=== PATIENT | female | born 1985 | race Caucasian/White ===

== ENCOUNTER → 2016-05-31 | Day surgery (SDC) | payer OTHER ==
--- NOTE | 2016-05-30 17:01 | MH ---
cc: LUIS ANGELO DMD DATE OF ADMISSION 05/31/2016 DATE OF 1985 HISTORY OF THE PRESENT ILLNESS Ms. Brown presented to my office on April 29, 2016 for evaluation of her lump on her chin / neck. She stated that the lump has been there for approximately one year. She was living in [place]. The swelling comes and goes and extends all way up to the right ear on the side. We had also done in the office a previous needle aspiration that came back as a thickened, clear serous yellowish fluid. Consistent with the saliva. The patient indicates the swelling comes and goes. 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 She was supposed to have surgery previously but she never had it done. Now the plan for her is to proceed with the removal of this plunging ranula in the main OR. Vital signs blood pressure is 124/90, oxygen saturation 97%, pulse is at 67. PAST MEDICAL HISTORY 1. History of lipoma. 2. Bruising easily. 3. Clicking of jaw. 4. Clenching of teeth. MEDICATIONS Denied. PAST SURGICAL HISTORY 1. Removal of lipoma from back in 2010. 2. From foot and neck in 1997 and 1999. ALLERGIES TO PENICILLIN AND AMOXICILLIN. FAMILY HISTORY Mother has history of hypothyroidism, hypertension and breast cancer. SOCIAL HISTORY Denies alcohol, tobacco or illicit drug use REVIEW OF SYSTEMS NEUROLOGICAL: Denies any history of seizures or headaches. CARDIOVASCULAR:Denies any pericardial pain, any hypo or hypertension. Denies any cardial pain. Denies any chest pain. RESPIRATORY: Denies any difficulty breathing,shortness of breath, denies any asthma, any TB. MUSCULOSKELETAL: Denies any discomfort to moving extremities or lower extremities. GASTROINTESTINAL: Denies any history of irritable bowel syndrome, peptic ulcer disease, any abdominal discomfort. PHYSICAL EXAMINATION HEENT: Head is normocephalic. EYES: Pupils equal, round, react to light and accommodation. Extraocular movements are intact. NOSE: Nasal passages are patent. MOUTH: There is no elevation of floor of the mouth or the tongue. There is salivation, there is salivary flow that is noted upon palpation intraorally. Tissues are pink and well-perfused. NECK: There is a soft tissue edema that is towards the midportion going slightly to the right side of the neck. It is nontender to palpation. It is raised and it is soft. There is no erythema that is noted. There is no tenderness that is noted. Trachea midline. The expansion appears to be approximately 4 cm. CARDIOVASCULAR: Regular rate and rhythm. LUNGS: Clear to auscultation bilaterally. GASTROINTESTINAL: Positive bowel sounds. Nontender, nondistended, soft. GENITOURINARY: Deferred. EXTREMITIES: Positive range of movement. IMAGING Radiographic data, CT scan of the soft tissues neck shows a fluid filled area towards the floor of the mouth and towards the right side of the neck. It is well-circumscribed. IMPRESSION AND PLAN Ms. Brown has a history of a longstanding history of approximately one year of swelling on her chin which comes and goes, expands sometimes to the right side and causing discomfort radiating to her ear. Based on clinical data, radiographic data, and the needle aspiration, appears to be plunging ranula. Plan is to make an incision through the neck and remove the ranula and send it for biopsy. Benefits, risks, indications of the procedure, the procedure in detail and the options of no treatment were all discussed with this patient. Risks not limited to any postop pain, infection, bleeding, damage to the soft tissue, hard tissue, anesthesia complications, scar formation, recurrence of this lesion, further surgeries as required. All questions and concerns were addressed. Luis Angelo DMD RRT/MAISHA /3:32 PM /4:36 PM JAMEEL
[~2016-05-31] VITALS: Ht 162.6 cm; Wt 76.0 kg
[~2016-05-31] MED LIST: ACETAMINOPHEN 1000 MG/100 ML VIAL IV ONE; CHLORHEXIDINE GLUCONATE 0.12% 30 ML CUP ONE; CLINDAMYCIN 600 MG/NS 100 ML IV SCH; DEXAMETHASONE 4 MG TAB ONE; DEXAMETHASONE SOD PHOS 4 MG/ML VIAL ONE; DO NOT ADM ANY ANTICOAGULANT DRUGS XX PRN; FAMOTIDINE 20 MG/2 ML VIAL ONE; GELFOAM SIZE 100 ONE; INSULIN HUMAN REGULAR 1,000 UNITS/10 ML VIAL SQ PRN; KETOROLAC TROMETHAMINE 30 MG/ML (IVP) VIAL IV PUSH ONE; LACTATED RINGER'S 1000 ML INJ 1,000 ML IV ONE; LACTATED RINGER'S 1000 ML IV SCH; LIDOCAINE 1%/EPINEPHrine 1:100,000 SOLN 20 ML VIAL ONE; LIDOCAINE 2%/EPINEPHrine 1:100,000 30ML MDV ONE; METOPROLOL TARTRATE 25 MG TAB PO PRN; MICROFIBRILLAR COLLAGEN HEMOSTAT 70 X 35 MM BANDAGE ONE; MIDAZOLAM HCL 2 MG/2 ML VIAL ONE; ONDANSETRON HCL 4 MG/2 ML VIAL IV PUSH ONE; PROPOFOL 200 MG/20 ML AMP IV ONE; SODIUM CHLORID 0.9% 500 ML IV SCH; SODIUM CHLORIDE 0.9% INJ 100 ML ONE; fentaNYL CITRATE 250 MCG/5 ML AMP ONE; methylPREDNISolone SOD SUCC 125 MG/2 ML VIAL IV ONE; methylPREDNISolone SOD SUCC 125 MG/2 ML VIAL ONE
[2016-05-31 13:21] VITALS: BP 151/98; PULSE 86; RESP 16; TEMP 98.9; O2SAT 99
[2016-05-31 13:53] LABS: AUTOMATED NEUTROPHIL # 3.3 TH/MM3 (1.8-7.7); BASOPHIL # 0.1 TH/MM3 (0-0.2); BASOPHIL % 1.2 % (0.0-2.0); EOSINOPHIL # 0.2 TH/MM3 (0-0.4); EOSINOPHIL % 3.1 % (0.0-4.0); HEMATOCRIT 42.5 % (35.0-46.0); HEMO FLAGS DIFF FINAL; LYMPHOCYTE # 1.8 TH/MM3 (1.0-4.8); MEAN CELL VOLUME 85.2 FL (80.0-100.0); MEAN CORPUSCULAR HEMOGLOBIN 28.3 PG (27.0-34.0); MEAN CORPUSCULAR HGB CONC 33.2 % (32.0-36.0); MONO % 8.9 % (0.0-8.0); NEUT % 55.8 % (16.0-70.0); PLATELET COUNT 310 TH/MM3 (150-450); RED BLOOD COUNT 4.99 MIL/MM3 (4.00-5.30); RED CELL DISTRIBUTION WIDTH 12.9 % (11.6-17.2)
[2016-05-31 18:07] VITALS: BP 123/91; PULSE 86; RESP 16; TEMP 86; O2SAT 96
--- NOTE | 2016-06-03 07:43 | MP ---
cc: LUIS ANGELO DMD [facility], DATE OF SURGERY 05/31/2016 PREOPERATIVE DIAGNOSIS Right neck plunging ranula. POSTOPERATIVE DIAGNOSIS Right neck plunging ranula. PROCEDURE Excision of ranula right neck. SURGEON Dr. Angelo TELEVISION PRODUCTION TECHNICIAN Dr. Robles ANESTHESIA General, also 2% lidocaine with 1:100,000 epinephrine approximately 4 cc SPECIMENS The tissue from the neck. ESTIMATED BLOOD LOSS Minimal DISPOSITION The patient tolerated the procedure well, extubated and taken to the PACU. INDICATIONS FOR PROCEDURE This is a 31-year-old female with the approximately one year standing swelling on the right side of the neck near the midline going up to the right side of the ear. Aspiration in the clinic with the needle showed a yellowish clear sticky secretion consistent with saliva. CT scan also showed a soft tissue density consistent with what appears to be a plunging ranula. The patient is going to require removal of this plunging ranula in order to restore proper form and function. The benefits, risks, indication of the procedure, procedure in detail and the options of no treatment were discussed with this patient. The risks are not limited to any postop pain, infection, bleeding, damage to the adjacent soft tissue, hard tissue, anesthesia complications, numbness, nerve involvement, recurrence of this lesion/ranula, further surgeries as required, cosmetic defect which may require further correction. All questions and concerns were addressed. Consent is signed in the chart. PROCEDURE IN DETAIL The patient was met perioperatively. All questions and concerns were addressed. Past medical history was reviewed. No changes noted. The right side of the neck was marked. Clindamycin 600 mg was started perioperatively. The patient was taken to operating room number nine, placed on the table in the supine position. She was intubated orally. Eyes were taped shut. All pressure points were padded. At this time, a time-out was taken to identify the patient, the site, the procedure, surgery and all were in agreement. The patient was prepped at the surgical site with Betadine solution. I went to the sink to scrub and came back to wear the sterile attire. The patient draped in a normal sterile fashion. A marking pen used to make an outline from the angle of the mandible down to the inferior border of the mandible. Once that was done two fingerbreadths down, another two fingerbreadths down identified, 2% lidocaine with 1:100,000 epinephrine approximately 4 cc was injected over the area which we planned to make the incision. A marking pen was now used to make that line of incision. A 15 blade was used to make the incision through the skin. Bovie was used to cut down and then the platysma and all the all the fat layer. Once this was done, a dissecting scissors was used to gently, as I encountered the ranula, just to go all around it and slowly start lifting it off from the neck in a step and coming up. I started from the midline going right side to the posterior. I also palpated from inside the mouth with the lingual region the attachment to the lingual gland. When all the way down posteriorly, I excised this lesion/tissue/ranula in its entirety. Any bleeders were cauterized. Avitene was placed. The site was cauterized. The site was irrigated with Peridex saline and then finally Avitene was placed into the site. A smaller stab incision was made on the right side of the neck and a 1/4 inch [place] drain was placed into the operative site into the neck. Finally, 4-0 Vicryl was used to close up layers and then finally the skin was closed with 5-0 Prolene suture. The 1/4 inch Erica drain was attached with a 2-0 silk suture. Mastisol was placed around the wound surgical site, Steri-Strips were placed 1/2 inch. Finally, 4x4 gauze, Jonathon was used to wrap up the site. The patient tolerated the procedure well. No complications noted. All sponge and needle counts were all accounted for. ADDENDUM This specimen was now taken to pathology. Luis Angelo DMD RRT/PANDA /4:30 PM /7:27 AM JAMEEL
== END | disposition home or self-care (01) ==
LOC: HSDC 12:17
PROVIDERS: ATTEND Dentist Oral and Maxillofacial Surgery
DX: K11.6 Mucocele of salivary gland (principal); D76.3 Other histiocytosis syndromes; Z80.3 Family history of malignant neoplasm of breast; Z82.49 Family history of ischemic heart disease and other diseases of the circulatory system
CPT/HCPCS: 85025; 88305; J0131; J1100; J1885; J2250; J2405; J2930; J3010; J7120; J8540

== ENCOUNTER 2017-02-23 11:19 | Inpatient (IN) | payer OTHER ==
[~2017-02-23] VITALS: Ht 162.6 cm; Wt 85.3 kg
[2017-02-23] VITALS (93 sets, daily range): BP systolic 118–151; BP diastolic 65–120; PULSE 77–132; RESP 18–20; TEMP 97.4–98.2
[2017-02-23] MEDS ORDERED: PRENTAB85 PO (12:06)
[2017-02-23] MEDS ORDERED: LABE100T2 PO (12:06)
[2017-02-23] MEDS ORDERED: LACTATED RINGER'S 1000 ML INJ 1,000 ML IV PRN (12:49)
[2017-02-23] MEDS ORDERED: LACTATED RINGER'S 1000 ML INJ 1,000 ML IV SCH (12:49)
[2017-02-23] MEDS ORDERED: LIDOCAINE HCL 1% 50 ML VIAL INFIL PRN (13:00)
[2017-02-23] MEDS ORDERED: OXYTOCIN 30 UNITS-500ML PREMIX 500 ML IV ONE (13:00)
[2017-02-23] MEDS ORDERED: MINERAL OIL 10 ML VIAL TOPICAL PRN (13:00)
[2017-02-23] MEDS ORDERED: OXYTOCIN 30 UNITS-500ML PREMIX 500 ML IV SCH ×2 (13:00→20:00)
[2017-02-23] MEDS ORDERED: CITRIC ACID-SODIUM CITRATE LIQ 30 ML UDC PO SCH (13:00)
[2017-02-23] MEDS ORDERED: SODIUM CHLORID 0.9% 500 ML INJ 500 ML IV PRN (13:00)
[2017-02-23] MEDS ORDERED: LIDOCAINE HCL 1% 50 ML VIAL I-DERMAL PRN (13:00)
--- NOTE | 2017-02-23 13:05 | HHI.HP ---
HPI Chief Complaint IUGR with hypertension on aldomet 38 weeks Date Seen: Feb 23, 2017 Time Seen: 12:45 Travel History International Travel<30 Days: No Contact w/Intl Traveler<30Days: No Known Affected Area: No History of Present Illness HPI 31 yo with IUGR for induction at 38 weeks Weeks Gestation: 38 Para: 3 : 4 History Past Medical History Medical History: Denies Significant Hx Past Surgical History Surgical History: No Previous Surgery Family History Family History: Negative Social History Alcohol Use: No Tobacco Use: No Substance Abuse: No Allergies-Medications (Allergen,Severity, Reaction): Coded Allergies: penicillin G (Unverified Allergy, Severe, Hives, 12/28/16) amoxicillin (Unverified Allergy, Unknown, 12/28/16) Home Meds Reported Medications Vit W/ Ferrous Fumara (Pnv Plus Multivi 27-1 mg) 27 Mg Iron-1 Mg Tab, 1 TAB PO DAILY 02/23/17 Labetalol (Labetalol) 100 Mg Tab, 100 MG PO BID for Blood Pressure Management, TAB 0 Refills 02/23/17 Review of Systems Except as stated in HPI: all other systems reviewed are Neg Physical Exam Narrative GENERAL: Well-nourished, well-developed patient. SKIN: Warm and dry. HEAD: Normocephalic and atraumatic. EYES: No scleral icterus. No injection or drainage. ENT: No nasal drainage noted. Mucous membranes pink. Airway patent. NECK: Supple, trachea midline. No JVD. CARDIOVASCULAR: Regular rate and rhythm without murmurs, gallops, or rubs. RESPIRATORY: Breath sounds equal bilaterally. No accessory muscle use. BREASTS: Bilateral exam showed no masses , no retractions, no nipple discharge. ABDOMEN/GI: Abdomen soft, non-tender, bowel sounds present, no rebound, no guarding Gravid to [-] weeks size Fundal Height: [-] GENITOURINARY: External Genitalia: intact and normal in appearance BUS glands: [-] Cervix: [-] Dilatation: [-] Effacement: [-] Station: [-] Presentation: [-] Membranes: [intact or ruptured] Uterine Contractions: [-] FHT's: Category: [-] Baseline: [-] Reactive: [-] Variability: [-] Decels: [-] EXTREMITIES: No cyanosis or edema. BACK: Nontender without obvious deformity. No CVA tenderness. NEUROLOGICAL: Awake and alert. Motor and sensory grossly within normal limits. Five out of 5 muscle strength in all muscle groups. Normal speech. Caprini VTE Risk Assessment Caprini VTE Risk Assessment: No/Low Risk (score <= 1) Caprini Risk Assessment Model Point Value = 1 Point Value = 2 Point Value = 3 Point Value = 5 Age 41-60 Minor surgery BMI > 25 kg/m2 Swollen legs Varicose veins or History of unexplained or recurrent spontaneous Oral contraceptives or hormone replacement Sepsis (< 1 month) Serious lung disease, including pneumonia (< 1 month) Abnormal pulmonary function Acute myocardial infarction Congestive heart failure (< 1 month) History of inflammatory bowel disease Medical patient at bed rest Age 61-74 Arthroscopic surgery Major open surgery (> 45 min) Laparoscopic surgery (> 45 min) Malignancy Confined to bed (> 72 hours) Immobilizing plaster cast Central venous access Age >= 75 History of VTE Family history of VTE Factor V Leiden Prothrombin [id number] Lupus anticoagulant Anticardiolipin antibodies Elevated serum homocysteine Heparin-induced thrombocytopenia Other congenital or acquired thrombophilia Stroke (< 1 month) Elective arthroplasty Hip, pelvis, or leg fracture Acute spinal cord injury (< 1 month) Prophylaxis Regimen Total Risk Factor Score Risk Level Prophylaxis Regimen 0-1 Low Early ambulation 2 Moderate Order ONE of the following: *Sequential Compression Device (SCD) *Heparin 5000 units SQ BID 3-4 Higher Order ONE of the following medications: *Heparin 5000 units SQ TID *Enoxaparin/Lovenox 40 mg SQ daily (WT < 150 kg, CrCl > 30 mL/min) *Enoxaparin/Lovenox 30 mg SQ daily (WT < 150 kg, CrCl > 10-29 mL/min) *Enoxaparin/Lovenox 30 mg SQ BID (WT < 150 kg, CrCl > 30 mL/min) AND/OR *Sequential Compression Device (SCD) 5 or more Highest Order ONE of the following medications: *Heparin 5000 units SQ TID (Preferred with Epidurals) *Enoxaparin/Lovenox 40 mg SQ daily (WT < 150 kg, CrCl > 30 mL/min) *Enoxaparin/Lovenox 30 mg SQ daily (WT < 150 kg, CrCl > 10-29 mL/min) *Enoxaparin/Lovenox 30 mg SQ BID (WT < 150 kg, CrCl > 30 mL/min) AND *Sequential Compression Device (SCD) Data Data Vital Signs Reviewed: Yes Orders Orders Admit To Inpatient (02/23/17 ) Code Status (02/23/17 12:49) Vital Signs (Adult) .Per protocol (02/23/17 12:49) Activity Oob Ad Marielos (02/23/17 12:49) Heart (02/23/17 12:49) Amnioinfusion (02/23/17 12:49) Urinary Catheter Management .ONCE (02/23/17 12:49) Diet Liquid (02/23/17 Lunch) Lactated Ringer's 1000 Ml Inj (Lr 1000 M (02/23/17 12:49) Lactated Ringer's 1000 Ml Inj (Lr 1000 M (02/23/17 12:49) Sodium Chlorid 0.9% 500 Ml Inj (Ns 500 M (02/23/17 13:00) Sodium Chlor 0.9% 1000 Ml Inj (Ns 1000 M (02/23/17 13:09) Lidocaine 1% Inj (50 Ml) (Xylocaine 1% I (02/23/17 13:00) Citric Acid-Sodium Citrate Liq (Bicitra (02/23/17 13:00) Fentanyl Inj (Fentanyl Inj) (02/23/17 13:00) Fentanyl Inj (Fentanyl Inj) (02/23/17 13:00) Complete Blood Count With Diff (02/23/17 12:49) Hold Clot (02/23/17 12:49) Abo/Rh Blood Type (02/23/17 12:49) Urinalysis - C+S If Indicated (02/23/17 12:49) Resp Oxygen Non Rebreathe Mask (02/23/17 ) ^ Epidural / Intrathecal Infus (02/23/17 12:49) Oxytocin 30 Units-500ml Premix (Pitocin (02/23/17 13:00) Lidocaine 1% Inj (50 Ml) (Xylocaine 1% I (02/23/17 13:00) Light Mineral Oil (Muri-Lube Oil) (02/23/17 13:00) Inpatient Certification (02/23/17 ) Specimen To Be Collected PRN (02/23/17 12:49) ^ Non Stress Test (02/23/17 12:49) Response To Medication .Post New Med Administration, Reaction (02/23/17 12:49) ^ Discontinue Medication (02/23/17 12:49) Oxytocin Drip (2-2-30) (02/23/17 13:00) Comprehensive Metabolic Panel (02/23/17 12:49) Group B Strep: Negative Assessment/Plan Problem List: (1) 38 weeks gestation of ICD Codes: Z3A.38 - 38 weeks gestation of (2) Hypertension affecting in third trimester ICD Codes: O16.3 - Unspecified maternal hypertension, third trimester (3) IUGR (intrauterine growth retardation) of ICD Codes: P05.9 - [place] affected by slow intrauterine growth, unspecified Discharge Planning dc home after delivery Kamran Oconnor MD Feb 23, 2017 13:05
[2017-02-23] MEDS ORDERED: SODIUM CHLOR 0.9% 1000 ML INJ 1,000 ML IV PRN (13:09)
[2017-02-23 13:17] LABS: AUTOMATED NEUTROPHIL # 7.6 TH/MM3 (1.8-7.7); BASOPHIL % 0.4 % (0.0-2.0); EOSINOPHIL # 0.2 TH/MM3 (0-0.4); EOSINOPHIL % 1.6 % (0.0-4.0); HEMATOCRIT 35.3 % (35.0-46.0); HEMO FLAGS DIFF FINAL; LYMPH % 18.9 % (9.0-44.0); MEAN CELL VOLUME 84.3 FL (80.0-100.0); MEAN CORPUSCULAR HEMOGLOBIN 27.5 PG (27.0-34.0); MEAN CORPUSCULAR HGB CONC 32.6 % (32.0-36.0); MONO % 6.2 % (0.0-8.0); NEUT % 72.9 % (16.0-70.0); PLATELET COUNT 309 TH/MM3 (150-450); RED BLOOD COUNT 4.19 MIL/MM3 (4.00-5.30); RED CELL DISTRIBUTION WIDTH 14.5 % (11.6-17.2); WHITE BLOOD COUNT 10.5 TH/MM3 (4.0-11.0)
[2017-02-23 13:26] LABS: BACTERIA, URINE FEW /hpf; BLOOD, URINE NEG (NEG); COMMENT (UR) CULT NOT INDICATED; CULTURE IF INDICATED CULT NOT INDICATED; GLUCOSE,URINE NEG (NEG); KETONE, URINE NEG (NEG); MUCUS URINE FEW /lpf (OCC); NITRITE,URINE NEG (NEG); SQUAMOUS EPITHELIAL CELL URINE 11 /hpf (0-5); URINE COLOR YELLOW (YELLW/STRAW)
[2017-02-23 13:28] LABS: ANION GAP 12 MEQ/L (5-15); AST (GOT) 9 U/L (15-37); BICARBONATE 21.8 MEQ/L (21.0-32.0); BLOOD UREA NITROGEN 4 MG/DL (7-18); CHLORIDE 104 MEQ/L (98-107); GLOMERULAR FILTRATION RATE 145 ML/MIN (>89); POTASSIUM 3.7 MEQ/L (3.5-5.1); SODIUM (NA) 138 MEQ/L (136-145)
[2017-02-23 13:29] LABS: ALT (GPT) 14 U/L (10-53)
[2017-02-23 13:31] LABS: ALKALINE PHOSPHATASE 93 U/L (45-117); TOTAL BILIRUBIN ADULT 0.3 MG/DL (0.2-1.0)
[2017-02-23] MEDS ORDERED: DIPHTH/TETANUS/ACEL PERTUSSIS (BOOSTER) 0.5 ML VIAL/PFS IM ONE (16:00)
[2017-02-23] MEDS ORDERED: MEASLES, MUMPS, RUBELLA VACCINE 0.5 ML VIAL SQ ONE (16:00)
[2017-02-23] MEDS ORDERED: ePHEDrine/NS 25 MG/5 ML SYR ONE (18:47)
[2017-02-23] MEDS ORDERED: fentaNYL 2MCG-BUPIV 0.125% INJ 100 ML ONE (18:47)
--- NOTE | 2017-02-23 19:51 | PD.OB.DELI ---
Weeks gestation: 38 Gest age assessed date: Feb 23, 2017 Gest age assessed time: 12:00 Pt started active labor?: No Active labor start date: Feb 23, 2017 Active labor start time: 14:00 Medical induction of labor?: Yes (IUGR with htn on meds and 38 weeks) Medical induction start date: Feb 23, 2017 Medical induction start time: 13:00 Artificial rupture of membrane: Yes Artificial ROM date: Feb 23, 2017 Artifical ROM time: 13:11 Anesthesia: Epidural Episiotomy: None Vaginal Delivery: Normal, Spontaneous Presentation: Occiput anterior Nuchal Cord: x1 (loose) Delayed cord clamping (45 sec): Yes Infant: Female, Single Delivery date: Feb 23, 2017 Delivery time: 19:33 One Minute : 8 Five Minute : 8 Placenta: Spontaneous delivery, Intact, 3 vessel cord Laceration: No lacerations Estimated blood loss: 200 Kamran Oconnor MD Feb 23, 2017 19:51
[2017-02-23] MEDS ORDERED: ONDANSETRON ODT 4 MG TAB PO PRN (20:00)
[2017-02-23] MEDS ORDERED: DOCUSATE SODIUM 50 MG/SENNA 8.6 MG TAB PO PRN (20:00)
[2017-02-23] MEDS ORDERED: ZOLPIDEM TARTRATE 5 MG TAB PO PRN (20:00)
[2017-02-23] MEDS ORDERED: BENZOCAINE 20% TOPICAL SPRAY 60 ML CAN TOPICAL PRN (20:00)
[2017-02-23] MEDS ORDERED: ALUMINUM/MAGNESIUM/SIMETH 30 ML CUP PO PRN (20:00)
[2017-02-23] MEDS ORDERED: WITCH HAZEL 50%/GLYCERIN 12.5% 40 PAD JAR TOPICAL PRN (20:00)
[2017-02-23] MEDS ORDERED: SODIUM CHLORIDE 0.9% FLUSH 10 ML FLUSH IV FLUSH PRN (20:00)
[2017-02-23] MEDS ORDERED: NO SYSTEM NARCOTICS PRN (20:15)
[2017-02-23] MEDS ORDERED: ePHEDrine/NS 25 MG/5 ML SYR IV PUSH PRN (20:15)
[2017-02-23] MEDS ORDERED: fentaNYL 2MCG-BUPIV 0.125% 100 ML EPIDURAL SCH (20:15)
[2017-02-23] MEDS ORDERED: DO NOT ADMINISTER ANTICOAGULANTS PRN (20:15)
[2017-02-23] MEDS ORDERED: SODIUM CHLORIDE 0.9% FLUSH 10 ML FLUSH IV FLUSH SCH (21:00)
[2017-02-23] MEDS: LABETALOL HCL 100 MG TAB PO SCH (23:27)
[2017-02-23] MEDS: ACETAMINOPHEN 325 MG TAB PO PRN (23:27)
[2017-02-23] MEDS: IBUPROFEN 600 MG TAB PO PRN (23:27)
[2017-02-24 08:05] VITALS: BP 113/83; PULSE 81; RESP 16; TEMP 98
[2017-02-24] MEDS: IBUPROFEN 600 MG TAB PO PRN ×3 (08:07→21:22)
--- NOTE | 2017-02-24 08:26 | HHI.OB ---
Subjective Post Day: 1 Remarks doing well dc in AM Objective Vitals/I&O Vital Signs Date Time Temp Pulse Resp B/P (MAP) Pulse Ox O2 Delivery O2 Flow Rate FiO2 02/23/17 23:20 97.6 02/23/17 20:45 90 127/76 (93) 02/23/17 20:15 94 121/78 (92) 02/23/17 20:00 18 02/23/17 20:00 95 127/79 (95) 02/23/17 19:45 97.4 20 02/23/17 19:36 122 133/74 (93) 02/23/17 19:30 122 151/120 (130) 02/23/17 19:25 115 137/66 (89) 02/23/17 19:25 102 02/23/17 19:20 129/65 (86) 02/23/17 19:20 108 02/23/17 19:20 115 02/23/17 19:15 109 02/23/17 19:15 113 131/75 (93) 02/23/17 19:10 101 139/78 (98) 02/23/17 19:10 106 02/23/17 19:10 103 02/23/17 19:06 110 123/74 (90) 02/23/17 19:00 90 02/23/17 19:00 92 02/23/17 18:55 92 02/23/17 18:55 87 02/23/17 18:50 86 02/23/17 18:50 84 02/23/17 18:45 96 02/23/17 18:40 90 02/23/17 18:35 88 02/23/17 18:35 98 02/23/17 18:30 97.6 83 02/23/17 18:25 91 02/23/17 18:20 83 02/23/17 18:15 86 02/23/17 18:10 87 02/23/17 18:05 77 02/23/17 18:00 79 02/23/17 17:55 108 02/23/17 17:50 91 02/23/17 17:45 86 02/23/17 17:40 111 02/23/17 17:35 100 02/23/17 17:30 105 02/23/17 17:25 103 02/23/17 17:20 106 02/23/17 17:15 105 02/23/17 17:10 111 02/23/17 17:05 100 02/23/17 17:02 94 118/78 (91) 02/23/17 16:55 102 02/23/17 16:50 115 02/23/17 16:45 103 02/23/17 16:40 105 02/23/17 16:35 105 02/23/17 16:30 105 02/23/17 16:25 99 02/23/17 16:20 103 02/23/17 16:15 107 02/23/17 16:10 101 02/23/17 16:05 114 02/23/17 16:00 122 02/23/17 15:55 85 02/23/17 15:45 126 02/23/17 15:40 118 02/23/17 15:35 109 02/23/17 15:30 123 02/23/17 15:25 110 02/23/17 15:15 101 02/23/17 15:10 132 02/23/17 15:05 111 02/23/17 15:00 116 02/23/17 14:55 116 02/23/17 14:50 130 02/23/17 14:45 101 02/23/17 14:40 112 02/23/17 14:35 111 02/23/17 14:30 104 02/23/17 14:25 96 02/23/17 14:20 96 02/23/17 14:15 105 02/23/17 14:10 84 124/76 (92) 02/23/17 14:10 92 02/23/17 14:09 98.2 02/23/17 14:05 103 02/23/17 14:00 86 02/23/17 13:55 88 02/23/17 13:50 94 02/23/17 13:45 93 02/23/17 13:40 95 02/23/17 13:35 93 02/23/17 13:30 101 02/23/17 13:25 100 02/23/17 13:20 94 02/23/17 13:15 91 02/23/17 13:10 91 02/23/17 13:05 99 02/23/17 13:00 92 02/23/17 12:55 100 02/23/17 12:50 95 02/23/17 12:45 108 02/23/17 12:40 97 02/23/17 12:35 97 02/23/17 12:30 100 02/23/17 12:25 101 02/23/17 12:20 100 02/23/17 12:15 101 Objective Remarks GENERAL: Well-nourished, well-developed patient. CARDIOVASCULAR: Regular rate and rhythm without murmurs, gallops, or rubs. RESPIRATORY: Breath sounds equal bilaterally. No accessory muscle use. ABDOMEN/GI: Abdomen soft, non-tender. Fundus: Firm, non-tender at umbilicus. GENITOURINARY: Light to moderate bleeding. EXTREMITIES: No cyanosis or edema, non-tender, without signs of DVT. Medications and IVs Current Medications Medications (Trade) Dose Ordered Sig/Agata Route Start Time Stop Time Status Last Admin (NS Flush) 2 ml BID IV FLUSH 02/23/17 21:00 (NS Flush) 2 ml UNSCH PRN IV FLUSH 02/23/17 20:00 (Tylenol) 650 mg Q4H PRN PO 02/23/17 20:00 02/23/17 23:27 (Motrin) 600 mg Q6H PRN PO 02/23/17 20:00 02/24/17 08:07 (Americaine 20% Top Spr) 1 spray Q4H PRN TOPICAL 02/23/17 20:00 02/23/17 23:27 (Tucks Pads) 1 applic QID PRN TOPICAL 02/23/17 20:00 02/23/17 23:27 (Gisele-Colace) 2 tab Q12H PRN PO 02/23/17 20:00 02/24/17 08:06 (Ambien) 5 mg HS PRN PO 02/23/17 20:00 (Mag-Al Plus Susp Liq) 15 ml Q8H PRN PO 02/23/17 20:00 (Zofran Odt) 4 mg Q6H PRN PO 02/23/17 20:00 Miscellaneous Information No systemic narcotics to be given except... UNSCH PRN .XX 02/23/17 20:15 02/24/17 20:14 Miscellaneous Information DO NOT ADMINISTER ANY ANTICOAGUL... UNSCH PRN .XX 02/23/17 20:15 02/24/17 20:14 Fentanyl/ Bupivacaine HCl 100 ml @ 0 mls/hr TITRATE EPIDURAL 02/23/17 20:15 02/23/17 20:11 (ePHEDrine/NS 25 MG/5 ML SYR) 10 mg UNSCH PRN IV PUSH 02/23/17 20:15 02/24/17 20:14 (Trandate) 100 mg BID PO 02/23/17 21:00 02/23/17 23:27 Assessment/Plan Problem List: (1) 38 weeks gestation of ICD Codes: Z3A.38 - 38 weeks gestation of (2) Hypertension affecting in third trimester ICD Codes: O16.3 - Unspecified maternal hypertension, third trimester (3) IUGR (intrauterine growth retardation) of ICD Codes: P05.9 - affected by slow intrauterine growth, unspecified (4) Spontaneous vaginal delivery ICD Codes: O80 - Encounter for full-term uncomplicated delivery Discharge Planning stay on labetalol dc home in AM doing well Kamran Oconnor MD Feb 24, 2017 08:26
--- NOTE | 2017-02-24 08:29 | HHI.DCPOC ---
Discharge Care Plan Diagnosis: (1) Spontaneous vaginal delivery Report Symptoms to Your Doctor -Temperature above 100.5 degrees -Redness, of incision or excessive or foul smelling drainage -Unusual pain or calf pain -Increased vaginal bleeding -Painful or difficulty urinating -Feelings of extreme sadness or anxiety after 2 weeks Goals to Promote Your Health * To prevent worsening of your condition and complications * To maintain your health at the optimal level Directions to Meet Your Goals Take your medications as prescribed Follow your dietary instruction Follow activity as directed Ensure plenty of rest for recovery Drink fluids for hydration Keep your appointments as scheduled Take your immunizations and boosters as scheduled If your symptoms worsen call your PCP, if no PCP go to Urgent Care Center or Emergency Room Smoking is Dangerous to Your Health. Avoid second hand smoke Call the 24-hour crisis hotline for domestic abuse at Kamran Oconnor MD Feb 24, 2017 08:29
[2017-02-24] MEDS: LABETALOL HCL 100 MG TAB PO SCH ×2 (09:00→21:21)
[2017-02-24] MEDS: ACETAMINOPHEN 325 MG TAB PO PRN ×2 (14:41→21:21)
[2017-02-24 21:20] VITALS: BP 121/84; PULSE 81; RESP 16; TEMP 97.9
--- NOTE | 2017-02-25 07:47 | HHI.OB ---
Subjective Post Day: 2 Remarks doing well Objective Vitals/I&O Vital Signs Date Time Temp Pulse Resp B/P (MAP) Pulse Ox O2 Delivery O2 Flow Rate FiO2 02/24/17 21:20 121/84 (96) 02/24/17 21:20 81 02/24/17 21:20 97.9 16 02/24/17 08:05 98.0 16 02/24/17 08:05 81 113/83 (93) Objective Remarks GENERAL: Well-nourished, well-developed patient. ABDOMEN/GI: Abdomen soft, non-tender. Fundus: Firm, non-tender at umbilicus. GENITOURINARY: Light to moderate bleeding. EXTREMITIES: No cyanosis or edema, non-tender, without signs of DVT. Medications and IVs Current Medications Medications (Trade) Dose Ordered Sig/Agata Route Start Time Stop Time Status Last Admin (NS Flush) 2 ml BID IV FLUSH 02/23/17 21:00 (NS Flush) 2 ml UNSCH PRN IV FLUSH 02/23/17 20:00 (Tylenol) 650 mg Q4H PRN PO 02/23/17 20:00 02/24/17 21:21 (Motrin) 600 mg Q6H PRN PO 02/23/17 20:00 02/24/17 21:22 (Americaine 20% Top Spr) 1 spray Q4H PRN TOPICAL 02/23/17 20:00 02/23/17 23:27 (Tucks Pads) 1 applic QID PRN TOPICAL 02/23/17 20:00 02/23/17 23:27 (Gisele-Colace) 2 tab Q12H PRN PO 02/23/17 20:00 02/24/17 08:06 (Ambien) 5 mg HS PRN PO 02/23/17 20:00 (Mag-Al Plus Susp Liq) 15 ml Q8H PRN PO 02/23/17 20:00 (Zofran Odt) 4 mg Q6H PRN PO 02/23/17 20:00 Fentanyl/ Bupivacaine HCl 100 ml @ 0 mls/hr TITRATE EPIDURAL 02/23/17 20:15 02/23/17 20:11 (Trandate) 100 mg BID PO 02/23/17 21:00 02/24/17 21:21 (Flu (Quadrivalent) Vaccine Inj) 0.5 ml ONCE ONCE IM 02/25/17 10:00 02/25/17 10:01 02/24/17 21:26 Assessment/Plan Problem List: (1) 38 weeks gestation of ICD Codes: Z3A.38 - 38 weeks gestation of (2) Hypertension affecting in third trimester ICD Codes: O16.3 - Unspecified maternal hypertension, third trimester (3) IUGR (intrauterine growth retardation) of ICD Codes: P05.9 - [place] affected by slow intrauterine growth, unspecified (4) Spontaneous vaginal delivery ICD Codes: O80 - Encounter for full-term uncomplicated delivery Discharge Planning stay on labetalol [facility] Kamran Oconnor MD Feb 25, 2017 07:47
[2017-02-25 07:50] VITALS: BP 127/83; PULSE 79; RESP 18; TEMP 97.9
--- NOTE | 2017-02-25 07:50 | HHI.DS ---
Admission Date Feb 23, 2017 at 11:19 Discharge Date: Feb 25, 2017 Admitting Diagnosis Diagnosis: (1) Spontaneous vaginal delivery Diagnosis: Principal ICD Codes: O80 - Encounter for full-term uncomplicated delivery Delivery Date: Feb 23, 2017 Vaginal Delivery: Normal, Spontaneous : Female, Single Brief History 31 yo with IUGR for induction at 38 weeks Hospital Course doing well, dc home Pt Condition on Discharge: Good Discharge Disposition: Discharge Home Discharge Instructions Diet Instructions: As Tolerated, No Restrictions Activities You Can Perform: Pelvic Rest Follow up Referrals: [employer] [employer] - 2 Weeks @ [facility] with Kamran Oconnor MD Continued Medications: Labetalol (Labetalol) 100 Mg Tab 100 MG PO BID for Blood Pressure Management, TAB 0 Refills Discontinued Medications: Vit W/ Ferrous Fumara (Pnv Plus Multivi 27-1 mg) 27 Mg Iron-1 Mg Tab 1 TAB PO DAILY Kamran Oconnor MD Feb 25, 2017 07:49
[2017-02-25] MEDS ORDERED: PERC5TAB12 PO (07:55)
[2017-02-25] MEDS: ACETAMINOPHEN 325 MG TAB PO PRN (08:29)
[2017-02-25] MEDS: LABETALOL HCL 100 MG TAB PO SCH (08:29)
[2017-02-25] MEDS: IBUPROFEN 600 MG TAB PO PRN (08:29)
[2017-02-25] MEDS ORDERED: INFLUENZA VIRUS VACCINE (QUADRIVALENT) 0.5 ML SYR IM ONE (10:00)
== END 2017-02-25 12:18 | disposition home or self-care (01) | DRG 775 ==
LOC: H2EA 11:19 → H1EA 21:17
PROVIDERS: ADMIT Obstetrics & Gynecology; ATTEND Obstetrics & Gynecology
PROC: 10E0XZZ Delivery of Products of Conception, External Approach (ICD-10-PCS; principal; 2017-02-23)
PROC: 3E0P3VZ Introduction of Hormone into Female Reproductive, Percutaneous Approach (ICD-10-PCS; 2017-02-23)
PROC: 10907ZC Drainage of Amniotic Fluid, Therapeutic from Products of Conception, Via Natural or Artificial Opening (ICD-10-PCS; 2017-02-23)
DX: O36.5930 Maternal care for other known or suspected poor fetal growth, third trimester, not applicable or unspecified (principal); O16.4 Unspecified maternal hypertension, complicating childbirth; O69.81X0 Labor and delivery complicated by cord around neck, without compression, not applicable or unspecified; Z37.0 Single live birth; Z3A.38 38 weeks gestation of pregnancy; Z23 Encounter for immunization
CPT/HCPCS: 80053; 81001; 85025; 86900; 86901; 90686; 90715; J3010; J7120; Q2038

== ENCOUNTER 2017-06-20 13:07 | Observation (INO) | payer OTHER ==
[~2017-06-20] VITALS: Ht 162.6 cm; Wt 74.3 kg
--- NOTE | 2017-06-20 06:48 | MH ---
cc: LUIS ANGELO DMD DATE OF ADMISSION: 06/20/2017 DATE OF 1985 HISTORY OF PRESENT ILLNESS Ms. Brown had previously undergone an excision and removal of a plunging ranula from her right neck. Subsequently following that it started recurring again. For the last several months we have been draining it with a needle aspiration. She was . She delivered the baby which is how three months old, so now she is ready to proceed with removal of the plunging ranula of the right neck. PAST MEDICAL HISTORY 1. History of lipoma. 2. Clenching of the teeth. 3. Clicking of jaw. 4. Bruises easily. 5. High blood pressure. 6. She also nursing. PAST SURGICAL HISTORY Removal of the plunging ranula of the right chin/neck. ANESTHESIA PROBLEMS She indicated she woke up in the middle of her surgery in the past. GROWTH AND DEVELOPMENT Denied any problems. INFECTIOUS DISEASES Denied. OTHER SURGERY Denied. MEDICATIONS Just multivitamins. ALLERGIES DRUG REACTIONS TO AMOXICILLIN, PENICILLIN. FAMILY HISTORY Family history of breast cancer and brain cancer. Her mom with high blood pressure. Inherited/familial disease - high blood pressure. SOCIAL HISTORY Lives with home with her and children. Denies tobacco or any alcohol or any illicit drug use. Eating well. REVIEW OF SYSTEMS CONSTITUTIONAL: Height 5 feet, 4 inches, weight 165 pounds. No significant weight loss recently. HEAD: History of headaches which is chronic history since 1 years old. Denies any dizziness, any injury or any seizures. EYES: Denies any visual problems, double vision, any blind spots. NOSE: Denies any bleeding, obstruction or discharges. MOUTH: Denies any dental difficulties, gingival bleeding or any dentures. THROAT: Denies any hoarseness, nausea, any soreness, any thyroid disease. LYMPH NODES: Denies any local and/or glandular enlargement. RESPIRATORY: Denies any TB, any shortness of breath, any cough. Denies any asthma, COPD or any sleep apnea. CARDIOVASCULAR: Denies any pericardial pain. History of hypertension secondary to gestational high blood pressure. Denies any murmurs. Denies any shortness of breath on exertion. Denies any edema. Denies any phlebitis. Denies any rheumatic fever. Denies any heart surgery. GASTROINTESTINAL: Denies any gallbladder, IBS or any peptic ulcer disease. GENITOURINARY: History of chronic UTIs. Denies any kidney disease, any renal disease. MUSCULOSKELETAL: Denies any pain, any limitation of movement, any muscular weakness. ENDOCRINE: Denies any diabetes mellitus, hormone therapy or any growth disturbances. HEMATOLOGICAL: Denies any anemia, any bleeding tendencies or any Rh incompatibilities. No previous transfusions. NEUROLOGIC: Denies any motor or sensory disturbances. MENSTRUAL: She reports usual 5 days every 29-30 days. Denies any . Reports that her has undergone a mastectomy. PHYSICAL EXAMINATION VITAL SIGNS: Pulse is 76, blood pressure is 120/85 with an oxygen saturation of 97%. History of ASA is going to be 2. GENERAL: Alert, awake and oriented x3, in no acute distress. Well-groomed female. HEAD: Normocephalic. EYES: Pupils equal, round, reactive to light and accommodation. Extraocular movements are intact. NOSE: Symmetrical. Airway is patent. MOUTH: Mallampati II. No intraoral edema noted. Tissues are pink and well-perfused, moist. NECK: On the right neck there is an edema that is soft, expansile in nature. There is previous scar formation that is noted from the previous incision site. This is secondary to constantly expanding of this plunging ranula. Trachea is at midline. The area is nicely well-circumscribed. It is smooth and soft. Range of movement of the neck. No tenderness. CARDIOVASCULAR: Regular rate and rhythm. RESPIRATORY: Clear to auscultation bilaterally. ABDOMEN: Nontender, nondistended, soft. GI: Positive bowel sounds. EXTREMITIES: Positive range of movement of upper extremities and lower extremities. NEUROLOGICAL: Cranial nerves II through XII grossly intact. EKG Three lead EKG in office shows a normal sinus rhythm. ASSESSMENT Ms. Brown with a previous history of a plunging ranula which was done here at [facility] previously. Now there is a recurrence of this plunging ranula. It has been going on for approximately a year. She is no longer and safe to proceed with the surgery of removal of the plunging ranula from the right neck and scar revision also. The benefits, risks, indication for the procedure, procedure in detail and options of no treatment were all discussed with this patient, not limited to any postop pain, infection, bleeding, damage to the adjacent soft tissue, hard tissue, anesthesia complications, recurrence of this lesion, nerve involvement, any sensory or motor deficits, further surgeries as required. The patient has been advised, as she is nursing to pump the milk prior to the surgery, especially if taking narcotics for pain control. All questions and concerns were addressed. Luis Angelo DMD RRT/FAREED /5:55 AM /6:23 AM
[~2017-06-20 13:07] MED LIST changes: -ACETAMINOPHEN 1000 MG/100 ML VIAL IV ONE; -CHLORHEXIDINE GLUCONATE 0.12% 30 ML CUP ONE; -CLINDAMYCIN 600 MG/NS 100 ML IV SCH; -DEXAMETHASONE 4 MG TAB ONE; +DEXAMETHASONE SOD PHOS 4 MG/ML VIAL IV ONE; -DEXAMETHASONE SOD PHOS 4 MG/ML VIAL ONE; -DO NOT ADM ANY ANTICOAGULANT DRUGS XX PRN; -FAMOTIDINE 20 MG/2 ML VIAL ONE; -GELFOAM SIZE 100 ONE; +GLYCOPYRROLATE 1 MG/5 ML SYRINGE IV PUSH ONE; -INSULIN HUMAN REGULAR 1,000 UNITS/10 ML VIAL SQ PRN; -KETOROLAC TROMETHAMINE 30 MG/ML (IVP) VIAL IV PUSH ONE; -LACTATED RINGER'S 1000 ML IV SCH; -LIDOCAINE 1%/EPINEPHrine 1:100,000 SOLN 20 ML VIAL ONE; -LIDOCAINE 2%/EPINEPHrine 1:100,000 30ML MDV ONE; +LIDOCAINE HCL 1% PF 5 ML SYRINGE OTHER ONE; -METOPROLOL TARTRATE 25 MG TAB PO PRN; -MICROFIBRILLAR COLLAGEN HEMOSTAT 70 X 35 MM BANDAGE ONE; -MIDAZOLAM HCL 2 MG/2 ML VIAL ONE; +NEOSTIGMINE 5 MG/5 ML SYRINGE IV PUSH ONE; +ONDANSETRON HCL 4 MG/2 ML VIAL IV ONE; -ONDANSETRON HCL 4 MG/2 ML VIAL IV PUSH ONE; +ROCURONIUM INJ 50 MG/5 ML SYRINGE IV PUSH ONE; -SODIUM CHLORID 0.9% 500 ML IV SCH; -SODIUM CHLORIDE 0.9% INJ 100 ML ONE; +SUCCINYLCHOLINE CHLORIDE 200 MG/10 ML VIAL IV ONE; -fentaNYL CITRATE 250 MCG/5 ML AMP ONE; -methylPREDNISolone SOD SUCC 125 MG/2 ML VIAL IV ONE; -methylPREDNISolone SOD SUCC 125 MG/2 ML VIAL ONE
[2017-06-20] MEDS ORDERED: LACTATED RINGER'S 1000 ML IV PRN (13:45)
[2017-06-20] MEDS ORDERED: CHLORHEXIDINE GLUCONATE 2 % 1 PACK (2 CLOTHS) TOPICAL PRN (13:45)
[2017-06-20] MEDS ORDERED: METOPROLOL TARTRATE 25 MG TAB PO PRN (13:45)
[2017-06-20] MEDS ORDERED: POVIDONE IODINE 5% (ANTISEPSIS KIT) 4 APPLICATIONS EACH NARE PRN (13:45)
[2017-06-20] MEDS ORDERED: SODIUM CHLORID 0.9% 500 ML IV PRN (13:45)
[2017-06-20 14:10] LABS: AUTOMATED NEUTROPHIL # 4.1 TH/MM3 (1.8-7.7); BASOPHIL # 0.1 TH/MM3 (0-0.2); BASOPHIL % 1.2 % (0.0-2.0); EOSINOPHIL # 0.3 TH/MM3 (0-0.4); EOSINOPHIL % 4.6 % (0.0-4.0); HEMATOCRIT 37.3 % (35.0-46.0); HEMOGLOBIN 13.6 GM/DL (11.6-15.3); LYMPH % 28.1 % (9.0-44.0); MEAN CELL VOLUME 83.7 FL (80.0-100.0); MEAN CORPUSCULAR HEMOGLOBIN 30.6 PG (27.0-34.0); MEAN PLATELET VOLUME 7.5 FL (7.0-11.0); MONO % 7.3 % (0.0-8.0); MONOCYTE # 0.5 TH/MM3 (0-0.9); NEUT % 58.8 % (16.0-70.0); PLATELET COUNT 312 TH/MM3 (150-450); RED BLOOD COUNT 4.45 MIL/MM3 (4.00-5.30); RED CELL DISTRIBUTION WIDTH 14.1 % (11.6-17.2)
[2017-06-20 14:11] LABS: MEAN CORPUSCULAR HGB CONC 36.6 % (32.0-36.0)
[2017-06-20] MEDS ORDERED: CLINDAMYCIN 600 MG/NS PREMIX 50 ML IV SCH (14:15)
[2017-06-20] MEDS ORDERED: LIDOCAINE 1%/EPINEPHrine 1:100,000 SOLN 50 ML VIAL ONE (14:19)
[2017-06-20] MEDS ORDERED: LIDOCAINE 2%/EPINEPHrine PF 1:200,000 20ML SDV ONE ×2 (14:19→17:30)
[2017-06-20] MEDS ORDERED: MICROFIBRILLAR COLLAGEN HEMOSTAT 70 X 35 MM BANDAGE ONE (14:20)
[2017-06-20] MEDS ORDERED: GELFOAM SIZE 100 ONE (14:20)
[2017-06-20] MEDS ORDERED: CHLORHEXIDINE GLUCONATE 0.12% 15 ML CUP ONE (14:21)
[2017-06-20 14:30] VITALS: O2SAT 98
[2017-06-20 15:12] LABS: OVALOCYTES 1+ (NORMAL)
[2017-06-20] MEDS ORDERED: BACITRACIN TOP OINT 15 GM TUBE ONE (16:20)
[2017-06-20] MEDS ORDERED: DO NOT ADM ANY ANTICOAGULANT DRUGS PRN ×2 (16:57→19:00)
[2017-06-20] MEDS ORDERED: HYDROmorphone HCL PF 2 MG/ML VIAL ONE (17:04)
[2017-06-20] MEDS ORDERED: MIDAZOLAM HCL 2 MG/2 ML VIAL ONE (17:05)
[2017-06-20] MEDS ORDERED: ACETAMINOPHEN 325MG/HYDROcodone 7.5MG/15ML UDC PO PRN (17:30)
[2017-06-20] MEDS ORDERED: ONDANSETRON HCL 4 MG/2 ML VIAL IV PUSH PRN (17:30)
[2017-06-20] MEDS ORDERED: BUPIVACAINE/EPINEPHRINE 0.25% PF 10 ML VIAL ONE (17:39)
[2017-06-20] MEDS ORDERED: BUPIVACAINE/EPINEPHRINE 0.5% PF 30 ML VIAL ONE (17:39)
[2017-06-20] MEDS ORDERED: BUPIVACAINE/EPINEPHRINE 0.25% PF 10 ML VIAL INFIL ONE (17:40)
--- NOTE | 2017-06-20 18:46 | HHI.PR ---
Immediate Post Op Note Procedure Date: Jun 20, 2017 Pre Op Diagnosis: Right neck plunging ranula right neck scar Post Op Diagnosis: rigoberto Surgeon: Edis Angelo Credit Risk Management Director(s): Dr. Robles Procedure: Removal of ranula right neck Revision of scar right neck Specimen(s) removed: ranula right neck Estimated blood loss: 70cc Anesthesia: General, Local (2:lidocaine with 1:200, 000 epi 5 cc) Drains: JOSE (JOSE drain #7 - right neck) Patient to: PACU Patient Condition: Good Date/Time of Procedure: SEE SURGICAL CARE RECORD Edis Angelo DMD Jun 20, 2017 18:46
--- NOTE | 2017-06-20 18:53 | HHI.PR ---
Immediate Post Op Note Procedure Date: Jun 20, 2017 Pre Op Diagnosis: hematoma right neck Post Op Diagnosis: rigoberto Surgeon: Edis Angelo Copy Chief(s): Dr. Robles Procedure: evacuation of hematoma right neck Estimated blood loss: 50cc Anesthesia: General, Local (0.25%marcaine with 1:200,000 epi) Drains: KRISTIE (kristie drain #7 right neck) Patient to: PACU Patient Condition: Good Date/Time of Procedure: SEE SURGICAL CARE RECORD Edis Angelo DMD Jun 20, 2017 18:53
[2017-06-20] MEDS: methylPREDNISolone SOD SUCC 125 MG/2 ML VIAL IV SCH ×2 (19:19→23:41)
[2017-06-20] MEDS ORDERED: oxyCODONE/ACETAMINOPHEN 7.5 MG/325 MG TAB PO PRN (19:30)
[2017-06-20] MEDS ORDERED: DIMETHICONE/OXYBENZONE/PADMIATE LIP BALM 4.25 GM TOPICAL ONE (19:43)
[2017-06-20] MEDS ORDERED: *morphine SULFATE 4 MG/ML PERIprocedure ONLY ONE (19:49)
--- NOTE | 2017-06-20 20:12 | PD.CONS ---
HPI Service [facility] Hospitalists Consult Requested By Dr. Angelo Reason for Consult medical management transfer to medical Primary Care Physician Kaylah Simpson MD Diagnoses: (1) Ranula History of Present Illness 32 y/o female s/p 3 months delivery who has history of excision and removal of a plunging ranula from right neck. Patient with frequent recurrence and for last several months was drained with needle aspiration. Patient 3 months post and had removal of plunging ranula of right neck ,post surgery had hematoma which was repaired and patient in PACU doing well. Medical was asked to place on their service. Patient doing well orders written by Dr. Angelo. Patient initially had some hypercapnia and anxiety resolved doing well. Review of Systems Other S/P surgery Past Family Social History Past Medical History lipoma,hypertension during currently nursing Past Surgical History multiple aspirates of ranula. recent child Reported Medications none breast feeding Allergies: Coded Allergies: penicillin G (Unverified Allergy, Severe, Hives, 12/28/16) amoxicillin (Unverified Allergy, Unknown, UNSURE; MOTHER TOLD HER NOT TO HAVE THIS MED, 06/16/17) Social History NS,ND Physical Exam Vital Signs Vital Signs Date Time Temp Pulse Resp B/P (MAP) Pulse Ox O2 Delivery O2 Flow Rate FiO2 06/20/17 19:15 97 15 130/79 (96) 93 Room Air 06/20/17 19:00 110 16 129/75 (93) 95 Room Air 06/20/17 18:45 110 16 122/72 (89) 99 06/20/17 18:35 97.6 122 16 126/76 (93) 97 Nasal Cannula 2 06/20/17 16:56 97.7 74 20 151/90 (110) 100 Nasal Cannula 2 06/20/17 14:12 98.2 71 20 127/88 (101) 96 Physical Exam GENERAL: This is a well-nourished, well-developed patient, in no apparent distress. SKIN: No rashes, ecchymoses or lesions. Cool and dry. HEAD: Atraumatic. Normocephalic. No temporal or scalp tenderness. EYES: Pupils equal round and reactive. Extraocular motions intact. No scleral icterus. No injection or drainage. ENT: Nose without bleeding, purulent drainage or septal hematoma. NECK: Trachea midline. old scar from previous surgeries CARDIOVASCULAR: Regular rate and rhythm without murmurs, gallops, or rubs. RESPIRATORY: Clear to auscultation. Breath sounds equal bilaterally. No wheezes , rales, or rhonchi. GASTROINTESTINAL: Abdomen soft, non-tender, nondistended. No hepato-splenomegaly , or palpable masses. No guarding. MUSCULOSKELETAL: Extremities without clubbing, cyanosis, or edema. No joint tenderness, effusion, or edema noted. No calf tenderness. Negative Homans sign bilaterally. NEUROLOGICAL: Awake and alert. Cranial nerves II through XII intact. Motor and sensory grossly within normal limits. Five out of 5 muscle strength in all muscle groups. Normal speech. Laboratory Laboratory Tests Test 06/20/17 13:50 White Blood Count 7.0 Red Blood Count 4.45 Hemoglobin 13.6 Hematocrit 37.3 Mean Corpuscular Volume 83.7 Mean Corpuscular Hemoglobin 30.6 Mean Corpuscular Hemoglobin Concent 36.6 Red Cell Distribution Width 14.1 Platelet Count 312 Mean Platelet Volume 7.5 Neutrophils (%) (Auto) 58.8 Lymphocytes (%) (Auto) 28.1 Monocytes (%) (Auto) 7.3 Eosinophils (%) (Auto) 4.6 Basophils (%) (Auto) 1.2 Neutrophils # (Auto) 4.1 Lymphocytes # (Auto) 2.0 Monocytes # (Auto) 0.5 Eosinophils # (Auto) 0.3 Basophils # (Auto) 0.1 CBC Comment AUTO DIFF Differential Comment AUTO DIFF CONFIRMED Platelet Estimate NORMAL Platelet Morphology Comment NORMAL Ovalocytes 1+ Result Diagram: 06/20/17 1350 Course Patient started on IV pain medications ,IV clindamycin and solumedrol Assessment and Plan Problem List: (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 Will ask service to see regarding out patient medication. Patient to start clear liquids and advance as tolerated. Medical will follow discharge in am if stable. Assessment and Plan as above further plan as per Dr. Angelo note. Code Status full Discussed Condition With patient Kevin Oquendo MD Jun 20, 2017 20:12
[2017-06-20 21:16] VITALS: BP 133/88; PULSE 97; RESP 17; TEMP 97.1; O2SAT 94
[2017-06-20] MEDS: MORPHINE SULFATE 2 MG/ML INJ IV PRN (22:14)
[2017-06-20] MEDS: CLINDAMYCIN 600 MG/NS PREMIX 50 ML IV SCH (23:41)
[2017-06-21] VITALS (10 sets, daily range): BP systolic 105–120; BP diastolic 64–81; PULSE 74–101; RESP 16–18; TEMP 96.7–98.7; O2SAT 91–100
--- NOTE | 2017-06-21 02:26 | HHI.PR ---
Addendum to Inpatient Note Addendum Reason: Additional Documentation Additional Information S: Resident team was paged at approximately 0200 for a Halicat for shortness of breath. Via staff and EMR patient a 32-year-old female with past history of plunging ranula removal is currently in the hospital for subsequent surgical correction of ranula recurrence. Post surgery patient had a hematoma formation, reported to be repaired with a JOSE drain placed. At the time of the Halicat the patient had woken up, felt pain in her neck around her stitches and became very concerned. She describes it as a dull/throbbing pain, located only in her neck. no difficulty breathing, shortness of breath, problems swallowing, feeling as though her throat is closing, headache, changes in vision. She reports that she feels as though she needs to cough although she is afraid to cough due to her neck bandaging. Denies nausea, vomiting, fever, chills, chest pain, palpitations , abdominal pain. O: GENERAL: Seated up in bed, anxious SKIN: Warm and dry. JOSE with minimal drainage from neck. HEAD: Atraumatic. Normocephalic. ENT: No nasal bleeding or discharge. Mucous membranes pink and moist. Bandages surrounding neck appear clean dry and intact. NECK: Trachea midline. No JVD. CARDIOVASCULAR: Elevated rate, normal rhythm. RESPIRATORY: No accessory muscle use. Clear to auscultation. Breath sounds equal bilaterally. Minor transmitted upper respiratory sounds. GASTROINTESTINAL: Abdomen soft, non-tender, nondistended. Hepatic and splenic margins not palpable. MUSCULOSKELETAL: Extremities without clubbing, cyanosis, or edema. No obvious deformities. NEUROLOGICAL: Awake and alert. No obvious cranial nerve deficits. Motor grossly within normal limits. Normal speech. PSYCHIATRIC: Anxious appearing, tearful A/P 32-year-old female with past history of plunging ranula removal is currently in the hospital for subsequent surgical correction of ranula recurrence with hematoma formation following surgery. Currently tachycardic, anxious appearing, no increased respiratory effort, no chest discomfort, EKG without signs of acute OH. Pulse had returned to 70s at time of EKG. Likely anxiety attack at this time, however Dr. Angelo was reported to be coming in immediately to assess patient. Breathing, heart rate, pain improved prior to end of patient encounter. -2 mg IV morphine once -Ativan has been considered however will be held until Dr. Angelo examines patient in case of possible surgical intervention tonight -Instructed staff and patient to call us for any acute chest, breathing difficulties, or other concerning symptoms, especially prior to Dr. Angelo's arrival Bryon Marley MD R1 Jun 21, 2017 02:26
[2017-06-21] MEDS ORDERED: LORazepam 2 MG/ML VIAL IV PUSH ONE (02:30)
[2017-06-21] MEDS ORDERED: MORPHINE SULFATE 2 MG/ML INJ IV PUSH ONE (02:30)
--- NOTE | 2017-06-21 03:10 | HHI.PR ---
Subjective Remarks pod 1 s/p removal of ranula right neck and scar revision, evacuation of hematoma right neck pt seen and examined this morning, nurses at bedside I called in to check on pt 222 am, nurses reports pt. panicking, wanted the pressure dressing removed, jaw bra removed pt seen and examined, anxious, reports something popped when she coughed denies severe pain/difficulty breathing, tolerating po Objective Vital Signs Date Time Temp Pulse Resp B/P (MAP) Pulse Ox O2 Delivery O2 Flow Rate FiO2 06/20/17 22:55 18 06/20/17 21:47 Room Air 06/20/17 21:16 97.1 97 17 133/88 (103) 94 06/20/17 20:45 98.2 88 16 127/85 (99) 95 Room Air 06/20/17 20:38 Room Air 06/20/17 20:30 91 14 132/86 (101) 94 Room Air 06/20/17 20:15 107 20 127/82 (97) 95 Room Air 06/20/17 20:00 99 18 134/85 (101) 95 Room Air 06/20/17 19:45 101 18 134/85 (101) 94 Room Air 06/20/17 19:30 114 18 136/84 (101) 96 Room Air 06/20/17 19:15 97 15 130/79 (96) 93 Room Air 06/20/17 19:00 110 16 129/75 (93) 95 Room Air 06/20/17 18:45 110 16 122/72 (89) 99 06/20/17 18:35 97.6 122 16 126/76 (93) 97 Nasal Cannula 2 06/20/17 16:56 97.7 74 20 151/90 (110) 100 Nasal Cannula 2 06/20/17 14:12 98.2 71 20 127/88 (101) 96 I/O 06/20/17 06/20/17 06/20/17 06/21/17 06/21/17 06/21/17 07:00 15:00 23:00 07:00 15:00 23:00 Intake Total 4232 ml Output Total 100 ml Balance 4132 ml Intake Oral 530 ml IV Total 102 ml Other 3600 ml Output Drainage Total 5 ml Estimated Blood Loss 95 ml # Voids 1 # Bowel Movements 0 Result Diagram: 06/20/17 1350 Objective Remarks vss, afebrile neck dressing in tact, clean dry no neck edema, neck soft, no hematoma noted no active heme noted, mild tenderness to palpation wound margins well approximated, sutures intact, no erythema no elevation fom, tongue kristie drain, holds suction, no gross drainage Assessment and Plan Assessment and Plan pod 1 s/p removal of ranula right neck and scar revision, evacuation of hematoma right neck reassured pt, Ativan 1mg given pt more calm now, talking w/o discomfort, comfortable now continue supportive care Edis Angelo DMD Jun 21, 2017 03:10
[2017-06-21] MEDS: LORazepam 2 MG/ML VIAL IV PRN ×2 (03:31→09:54)
[2017-06-21] MEDS ORDERED: methylPREDNISolone ACETATE 80 MG/ML VIAL IM ONE (06:00)
[2017-06-21] MEDS: CLINDAMYCIN 600 MG/NS PREMIX 50 ML IV SCH (06:05)
[2017-06-21] MEDS: MORPHINE SULFATE 2 MG/ML INJ IV PRN (06:53)
--- NOTE | 2017-06-21 07:39 | HHI.PR ---
Subjective Remarks pod 1 s/p removal of ranula right neck and scar revision, evacuation of hematoma right neck pt seen and examined this morning, AAOx3, NAD denies difficulty breathing/swallowing tolerating clear liquid Objective Vital Signs Date Time Temp Pulse Resp B/P (MAP) Pulse Ox O2 Delivery O2 Flow Rate FiO2 06/21/17 05:07 96.7 92 18 110/72 (85) 95 06/21/17 03:29 84 06/21/17 03:15 20 06/21/17 02:35 100 06/21/17 00:16 98.7 97 18 120/81 (94) 96 06/20/17 22:55 18 06/20/17 21:47 Room Air 06/20/17 21:16 97.1 97 17 133/88 (103) 94 06/20/17 20:45 98.2 88 16 127/85 (99) 95 Room Air 06/20/17 20:38 Room Air 06/20/17 20:30 91 14 132/86 (101) 94 Room Air 06/20/17 20:15 107 20 127/82 (97) 95 Room Air 06/20/17 20:00 99 18 134/85 (101) 95 Room Air 06/20/17 19:45 101 18 134/85 (101) 94 Room Air 06/20/17 19:30 114 18 136/84 (101) 96 Room Air 06/20/17 19:15 97 15 130/79 (96) 93 Room Air 06/20/17 19:00 110 16 129/75 (93) 95 Room Air 06/20/17 18:45 110 16 122/72 (89) 99 06/20/17 18:35 97.6 122 16 126/76 (93) 97 Nasal Cannula 2 06/20/17 16:56 97.7 74 20 151/90 (110) 100 Nasal Cannula 2 06/20/17 14:30 98 2.00 06/20/17 14:12 98.2 71 20 127/88 (101) 96 I/O 06/20/17 06/20/17 06/20/17 06/21/17 06/21/17 06/21/17 07:00 15:00 23:00 07:00 15:00 23:00 Intake Total 4232 ml 480 ml Output Total 100 ml 10 ml Balance 4132 ml 470 ml Intake Oral 530 ml 480 ml IV Total 102 ml Other 3600 ml Output Drainage Total 5 ml 10 ml Estimated Blood Loss 95 ml # Voids 1 2 # Bowel Movements 0 0 Result Diagram: 06/20/17 1350 Objective Remarks vss, afebrile neck dressing in tact, clean dry no neck edema, neck soft, no hematoma noted no active heme noted, mild tenderness to palpation wound margins well approximated, sutures intact, no erythema no elevation fom, tongue kristie drain, holds suction, minimal drainage - serous/sanguinous Assessment and Plan Assessment and Plan pod 1 s/p removal of ranula right neck and scar revision, evacuation of hematoma right neck pt more calm now, talking w/o discomfort, comfortable now continue supportive care to increase po, full liquid to soft oob to chair/ambulate plan for d/c later today Edis Angelo DMD Jun 21, 2017 07:39
[2017-06-21] MEDS ORDERED: INFLUENZA VIRUS VACCINE (QUADRIVALENT) 0.5 ML SYR IM ONE (09:00)
--- NOTE | 2017-06-21 11:19 | HHI.PR ---
Subjective Remarks on liquid. not eating much but tolerated. Objective Vitals neck bandaged heart reg lung cta Vital Signs Date Time Temp Pulse Resp B/P (MAP) Pulse Ox O2 Delivery O2 Flow Rate FiO2 06/21/17 10:55 91 Nasal Cannula 1.50 06/21/17 08:00 97.1 78 16 117/73 (88) 98 06/21/17 08:00 74 06/21/17 05:07 96.7 92 18 110/72 (85) 95 06/21/17 03:42 101 06/21/17 03:29 84 06/21/17 03:15 20 06/21/17 02:35 100 06/21/17 00:16 98.7 97 18 120/81 (94) 96 06/20/17 22:55 18 06/20/17 21:47 Room Air 06/20/17 21:16 97.1 97 17 133/88 (103) 94 06/20/17 20:45 98.2 88 16 127/85 (99) 95 Room Air 06/20/17 20:38 Room Air 06/20/17 20:30 91 14 132/86 (101) 94 Room Air 06/20/17 20:15 107 20 127/82 (97) 95 Room Air 06/20/17 20:00 99 18 134/85 (101) 95 Room Air 06/20/17 19:45 101 18 134/85 (101) 94 Room Air 06/20/17 19:30 114 18 136/84 (101) 96 Room Air 06/20/17 19:15 97 15 130/79 (96) 93 Room Air 06/20/17 19:00 110 16 129/75 (93) 95 Room Air 06/20/17 18:45 110 16 122/72 (89) 99 06/20/17 18:35 97.6 122 16 126/76 (93) 97 Nasal Cannula 2 06/20/17 16:56 97.7 74 20 151/90 (110) 100 Nasal Cannula 2 06/20/17 14:30 98 2.00 06/20/17 14:12 98.2 71 20 127/88 (101) 96 Result Diagram: 06/20/17 1350 A/P Problem List: (1) 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 Pt was encouraged by OFMS and nurse to avoid narcotic pain and anxiety medications. The nurse apparently said (PER RN) it would be ok to breast feed if she takes but I am recommending not to breast feed if she uses these medications. Pt understands. Dipesh Dueñas MD Jun 21, 2017 11:19
--- NOTE | 2017-06-21 12:07 | MP ---
cc: DINESHLUIS DMD DATE OF SURGERY 06/20/2017 PREOPERATIVE DIAGNOSIS 1. Right plunging ranula. 2. Right neck scar. POSTOPERATIVE DIAGNOSIS 1. Right plunging ranula. 2. Right neck scar. PROCEDURE 1. Removal of ranula, right neck. 2. Revision of scar, right neck. ANESTHESIA General; also 2% lidocaine with 1:200,000 epinephrine, approximately [address] Angelo[address] FISCAL ECONOMIST SURGEON Dr. Robles. ESTIMATED BLOOD LOSS 70 cc. DRAINS #7 JOSE drain in the right neck. DISPOSITION The patient tolerated the procedure well, was extubated and taken to the PACU. INDICATIONS FOR PROCEDURE This is a 32-year-old female who had a ranula in the right neck removed previously and has now recurred. It keeps expanding. Because it keeps expanding it forms a scar on the previous incision site on her right neck. It almost appears to be a hypertrophic scar. In order to restore proper form and function and remove the plunging ranula with revision of the scar it is necessary the patient undergo the above listed procedures. The benefits, risks, indication of the procedure, procedure in detail and the option of no treatment including alternatives were discussed with this patient. The risks are not limited to any post-op pain, infection, bleeding, damage to the adjacent soft tissue, hard tissue, anesthesia complications, numbness, more involvement of the muscles, recurrence of the ranula, further scar revision as required. All questions and concerns were addressed. Consent is signed in the chart. PROCEDURE DETAILS The patient was met perioperatively. The past medical history was reviewed/updated and no changes noted. The right side surgical site was marked. The patient was taken to the operating suite and placed on the table in a supine position. The patient was intubated orally. The eyes were taped shut. All pressure points were padded. At this time a timeout was taken to identify the patient, the site, the procedure and the surgeon, and all were in agreement. A Betadine prep was done on the neck and face. The patient was draped in normal sterile fashion. 2% lidocaine with 1:100,000 epinephrine was injected over the previous scar plus incision site. A marking pen was then used to outline the region of the scar and then the scar was removed with a 15 blade. Then slowly going down to the fat layer I could see a garza color ranula trying to plunge out. Using dissecting scissors and Bovie just slightly went around this ranula and freed it up. Then going posteriorly and superiorly underneath the mandible and the floor of the mouth going posteriorly, removed the whole ranula in its entirety along with the gland from where it was coming from in the sublingual region. Any little bleeders that we encountered were cauterized and tied off with 2-0 silk ties. The site was all irrigated with saline solution. A small stab incision was made in the posterior neck and a #7 JOSE drain was inserted through that. Once again it was made sure the operative site was hemostatic. The deep layer was closed with 3-[address] the way up to the subcuticular layer and the skin was closed with 5-0 Prolene. Bacitracin was applied on the wound along with 4x4 gauze and the neck was wrapped as a pressure dressing. All sponge and needle counts were accounted for at the end of the case. The patient was extubated but then she began hyperventilating and became very anxious. She was taken to the PACU. At this point in the PACU after some time it was noted the patient began to have discomfort and pain on the right side of the neck and then an expanding surface area noted. The JOSE drain bulb kept filling up. It appeared the patient had a hematoma. The patient was taken back to the operating room. Please see the separate dictated note for that. Luis Angelo DMD PERINATAL SOCIAL WORKER/BT /6:40 PM /11:44 AM
--- NOTE | 2017-06-21 12:26 | MP ---
cc: DINESHLUIS DMD DATE OF SURGERY June 20, 2017 PREOPERATIVE DIAGNOSIS Hematoma right neck. POSTOPERATIVE DIAGNOSIS Hematoma right neck. PROCEDURE Evacuation of the hematoma right neck. SURGEON Dr. Angelo [employer] Dr. Robles ANESTHESIA General, also local 0.25% Marcaine with 1:200,000 epinephrine at the end of the case. DRAINS JOSE drain #7 right neck. DISPOSITION The patient tolerated the procedure well, was extubated and taken to the PACU. INDICATIONS FOR PROCEDURE Ms. Brown previously had the plunging ranula revision of the scar removed earlier today. Then, after she was extubated she began hyperventilating, became very anxious. She was taken to the PACU, but after observation in the PACU she began to have the swelling on the right side of the neck. It began to cause her pain and appeared to be hematoma at this point, began expanding. The JOSE drain also started to fill up so at this point she was taken back to the operating room. It was necessary that we evacuate this hematoma. PROCEDURE DETAILS FOLLOWS The patient was taken back to operating room #17, placed on the table in supine position. She was extubated with a GlideScope again orally. Eyes were taped shut. All pressure points were padded. At this time a time-out was taken to identify the patient, the site, the procedure. Surgeon and all were in agreement. Betadine prep was done over the operative side. The patient was draped in normal sterile fashion. We opened up the sutures. As I was opening up the sutures, I see the blood clots gellatinous, just came right out, evacuated. I kept evacuating and irrigating with saline solution. At this point we went to the posterior aspect and superior aspect of the neck where the ranula ends. It appears to have venous bleeding, muscle bleeding. Did not appreciate any arterial bleeding. Bovie was used to cauterize all these regions. Also, the areas where we previously took the lining off also was cauterized. The lining against the soft tissue where the ranula was was also removed. The site was all irrigated with saline solution. No gross active bleeding was noted at this point. Thrombin powder was now placed over the site and we checked for hemostasis. I did not see any further bleeding at this point. JOSE drain is functioning fine. I irrigated that also with saline solution. 0.25% Marcaine with 1:200,000 epinephrine was injected in the area of the incision, the posterior area where it was bleeding, the muscles and into the neck site. Also inferior alveolar block was given in the mouth. Once again I looked back in the neck and good hemostasis was noted. I closed it back up in layers with deep 3-0 Vicryl sutures. The skin was closed and then came up to subcuticular and then finally the skin was closed with 5-0 Prolene suture. Bacitracin was applied. Fluff dressing and Jonathon dressing was placed and a jaw band was placed for added pressure dressing. The patient tolerated the procedure well. At this time she was extubated without any hyperventilating event. She tolerated the procedure well. All sponge and needle counts were accounted for at the end of the case. Luis Angelo DMD RRT/SSB /6:49 PM /12:06 PM
--- NOTE | 2017-06-21 14:35 | EKG ---
Date Performed: 06/21/2017 Time Performed: 02:21:20 PTAGE: 32 years EKG: Sinus tachycardia Poor R wave progression - probable normal variant Borderline ECG NO PREVIOUS TRACING DOCTOR: [place] Brennan Interpretating Date/Time 06/21/2017 14:30:34
[2017-06-21] MEDS ORDERED: NORC5TAB PO (15:23)
[2017-06-21] MEDS ORDERED: LORA-392 PO (15:23)
--- NOTE | 2017-06-21 15:24 | HHI.DCPOC ---
Discharge Care Plan Diagnosis: (1) Ranula Goals to Promote Your Health * To prevent worsening of your condition and complications * To maintain your health at the optimal level Directions to Meet Your Goals Take your medications as prescribed Follow your dietary instruction Follow activity as directed Keep your appointments as scheduled Take your immunizations and boosters as scheduled If your symptoms worsen call your PCP, if no PCP go to Urgent Care Center or Emergency Room Smoking is Dangerous to Your Health. Avoid second hand smoke Call the 24-hour hour crisis hotline for domestic abuse at Dipesh Dueñas MD Jun 21, 2017 15:24
== END 2017-06-21 18:15 | disposition home health service (06) ==
LOC: HSDC 13:07 → N06A 21:00
PROVIDERS: ADMIT Hospitalist; ATTEND Hospitalist
DX: K11.6 Mucocele of salivary gland (principal); L76.32 Postprocedural hematoma of skin and subcutaneous tissue following other procedure; L90.5 Scar conditions and fibrosis of skin; R00.0 Tachycardia, unspecified; R06.89 Other abnormalities of breathing; F41.9 Anxiety disorder, unspecified; R06.4 Hyperventilation; Z23 Encounter for immunization
CPT/HCPCS: 00100; 00300; 10140; 11420; 42408; 85025; 88305; 93005; 96365; 96372; 96375; 96376; G0378; J0330; J1040; J1100; J1170; J2060; J2250; J2270; J2405; J2710; J2930; J3010; J7120; Q2038; 90686